=== PATIENT | male | born 1990 | race Caucasian/White ===

== ENCOUNTER → 2023-06-07 11:45 | Outpatient (CLI) | payer SELFPAY ==
[2023-06-09 15:14] LABS: QuantiFERON Mitogen Value >10.00 IU/mL (.); QuantiFERON Nil Value 0.28 IU/mL (.); QuantiFERON TB Gold Plus Negative (Negative); QuantiFERON TB1 Ag Value 0.22 IU/mL (.); QuantiFERON TB2 Ag Value 0.38 IU/mL (.)
== END ==
DX: Z02.1 Encounter for pre-employment examination (principal)
CPT/HCPCS: 36415; 86480

== ENCOUNTER → 2023-07-13 19:17 | Outpatient (CLI) | payer SELFPAY | PROVIDERS: Referring Provider Family Medicine; Visit Provider Family Medicine | DX: Z23 Encounter for immunization (principal) | CPT/HCPCS: 90471; 90686 ==

== ENCOUNTER → 2023-12-19 09:36 | Outpatient (CLI) | payer OTHER, SELFPAY ==
[2023-12-19 13:24] LABS: Semen Sperm Prescence Post-Vas Absent (ABSENT)
== END ==
PROVIDERS: Referring Provider Urology; Visit Provider Urology
DX: Z31.41 Encounter for fertility testing (principal)
CPT/HCPCS: 89321

== ENCOUNTER → 2024-08-13 07:18 | Outpatient (CLI) | payer OTHER, SELFPAY ==
--- NOTE | 2024-08-13 | DI.MRI.S_ITS ---
PROCEDURE: MR HAND LT WO CON INDICATIONS: UCL TEAR TECHNIQUE: Noncontrast oblique coronal T1 spin echo and T2 fast spin echo with fat saturation, axial and sagittal T2 fast spin echo with fat saturation, through the thumb. COMPARISON: None. FINDINGS: Image quality: Excellent. Bones: The bones are normally aligned, without marrow contusions or fractures. No intra-osseous lesions. First carpometacarpal joint: On sagittal images, the dorsal radial ligament and posterior oblique ligament appear intact. The intermetacarpal ligament between the 1st and 2nd metacarpal bases also appears intact. On the volar aspect, the deep and superficial layers of the anterior oblique ligament appear intact. First metacarpophalangeal joint: The radial collateral ligament appears intact along with overlying fibers of the abductor pollicis brevis tendon. Thickened ulnar collateral ligament near its distal insertion with subtle intrasubstance T2 hyperintense signal. The overlying fibers of the adductor pollicis muscle are intact. The aponeurosis of the adductor pollicis muscle also appears normal. The volar plate appears intact on sagittal images, situated between the radial and ulnar sesamoids. Thenar muscles: No signal abnormalities are seen noted within the thenar muscles. Flexor pollicis longus tendon: FPL tendon is intact with grossly intact annular pulleys. Extensor tendons: The extensor tendons are within normal limits. Miscellaneous: No ganglion cysts. IMPRESSION: 1. Low-grade sprain/partial-thickness tear involving ulnar collateral ligament of 1st MCP joint near its distal insertion. The radial collateral ligament is intact. The aponeurosis of adductor pollicis muscle is also intact. 2. No marrow edema. No fracture or dislocation. No suspicious bony lesions. 3. Extensor and flexor tendons of the left thumb are intact. Annular pulleys are intact. Dictated by: Bruce Nath M.D. on 08/13/2024 at 10:37 Approved by: Bruce Nath M.D. on 08/13/2024 at 10:42
== END ==
PROVIDERS: Referring Provider Orthopaedic Surgery; Visit Provider Orthopaedic Surgery
DX: S63.642A Sprain of metacarpophalangeal joint of left thumb, initial encounter (principal); X58.XXXA Exposure to other specified factors, initial encounter
CPT/HCPCS: 73218